=== PATIENT | male | born 1965 | race Caucasian/White ===

== ENCOUNTER 2016-12-15 12:01 | Emergency (ER) | payer MEDICAID ==
--- NOTE | 2016-12-15 13:12 | ED Physician Chart ---
Chief Complaint/HPI - Patient Information Date Seen:: 12/15/16 Time Seen:: 12:20 Chief Complaint:: foreign body left thigh History of Present Illness:: Using a nail gun yesterday injected a nail into his proximal anterior left thigh. Patient referred to [facility] where an x-ray showed a 1 cm metallic foreign body in the subcutaneous tissue. The emergency physician there made a 1 cm incision in an unsuccessful attempt remove the foreign body. One suture was placed to close the incision. Historian:: Patient, Family Member Review:: Nurse's Note Reviewed Review of Systems - Review of Systems General/Constitutional: No fever, No chills Skin: Skin lesions Head: No headache Eyes: No loss of vision ENT: No earache Neck: No neck pain Cardio Vascular: No chest pain, No palpitations Pulmonary: No SOB GI: No nausea, No vomiting G/U: No dysuria Musculoskeletal: No bone or joint pain, No back pain Psychiatric: No prior psych history, No depression Hematopoietic: No bruising Allergic/Immuno: No urticaria Neurological: No syncope, No focal symptoms Past Medical History - Past Medical History Past Medical History: HTN, DM, Dyslipidemia, Other (hyperlipidemia) Family History: Diabetes Melitus Social History: Non Smoker, Alcohol, Other (occasional alcohol only) Surgical History: None Psychiatricy History: None Medication: None Family Medical History - Family Member Mother Hx Family Diabetes: Yes Physical Exam - Physical Examination General/Constitutional: Well-developed, well-nourished, Alert, No distress Head: Atraumatic Eyes: Lids, conjuctiva normal, PERRL Other Skin comments:: 1 cm incision proximal anterior right thigh with one suture noted. No foreign body is palpable. ENMT: External ears, nose nl Neck: No nuchal rigidity Respiratory: Nl effort/Exclusion, Clear to Auscultation Cardio Vascular: RRR GI: No tenderness/rebounding/guarding : No CVA tenderness Other Extremities comments:: see under skin Neuro/Psych: Alert/oriented Misc: Normal back, No paraspinal tenderness Labs/Radiology/EKG Results - Radiology Results Results: X-ray left femur showed a 1 cm long superficial foreign body in the proximal left femur. Assessment - Assessment General Assessment: Although the foreign body looks superficial on the x-ray it is possible that my attempt to remove it would be unsuccessful as it is not palpable at the skin surface. Except for possible pain I do not think the foreign body will cause any problem. If it ever becomes palpable at the skin surface patient easy to remove with a small incision. The patient and his family were so informed. ED Septic Shock - . Is Septic Shock (SBP<90, OR Lactate>4 mmol\L) present?: No Reassessment (Disposition) - Reassessment Reassessment Condition:: Unchanged - Diagnosis Diagnosis:: Metallic foreign body left side - Aftercare/Follow up Instructions Aftercare/Follow-Up Instructions:: Refer to Discharge Instructions - Patient Disposition Discharge/Transfer:: Home Condition at Disposition:: Stable, Unchanged ED Discharge Plan - Patient Disposition Instructions: Puncture Wound, [id number] Additional Instructions: TOLERATED.
--- NOTE | 2016-12-15 14:07 | Diagnostic Imaging Report ---
Left femur 2 views Indication: Foreign body Comparison: None Findings: There is 1.3 cm linear density probably needle fragments seen embedded within the soft tissues of the left lateral proximal left femur. The bony mineralization is within normal limits. Mild degenerative changes of the left hip joint are noted. No evidence of acute fracture is noted at the distal femur is incompletely visualized on this exam. Impression: 1.3 cm linear density probably a needle fragment embedded within the soft tissues of the left lateral proximal femur. Clinical correlation recommended. No evidence of an acute fracture. In the setting of trauma, if clinical symptoms persist and there is continued concern for an occult fracture, follow up exams in 5-7 days is suggested. Results were administered to the ER team on 12/15/2016 at 2:00 PM.
== END 2016-12-15 13:40 | disposition home or self-care (01) ==
LOC: ER 12:01
DX: S70.352A Superficial foreign body, left thigh, initial encounter (principal); I10 Essential (primary) hypertension; E11.9 Type 2 diabetes mellitus without complications; E78.5 Hyperlipidemia, unspecified; W45.8XXA Other foreign body or object entering through skin, initial encounter; Y93.89 Activity, other specified; Y92.89 Other specified places as the place of occurrence of the external cause; Y99.8 Other external cause status
CPT/HCPCS: Z7502

== ENCOUNTER 2017-03-14 16:42 | Emergency (ER) | payer MEDICAID ==
--- NOTE | 2017-03-14 17:07 | ED Physician Chart ---
ED Chief Complaint/HPI - Patient Information Date Seen:: 03/14/17 Time Seen:: 16:55 Chief Complaint:: Left Thigh Redness History of Present Illness:: onset x one month of localized redness and mild swelling of left thigh area after exploratory surgery one month ago; no FB found; pt denies any new injuries. trauma, H/As, neck pain, C/P, SOB, Abd. Pain, A/N/V/D/C, fever, chills , or urinary s/s; pt's last tetanus shot: < 5 years; UTD Allergies:: Allergies Allergy/AdvReac Type Severity Reaction Status Date / Time No Known Allergies Allergy Verified 12/15/16 12:35 Vitals:: Vital Signs - 8 hr 03/14/17 16:53 Temp 98.4 F HR 87 RR 16 BP 148/74 O2 Sat % 99 Historian:: Patient Review:: Nurse's Note Reviewed ED Review of Systems - Review of Systems General/Constitutional: No fever, No chills, No weight loss, No weakness, No diaphoresis, No edema, No loss of appetite Skin: Skin lesions, No rash, No bruising Head: No headache, No light-headedness Eyes: No loss of vision, No pain, No diplopia ENT: No earache, No nasal drainage, No sore throat, No tinnitus Neck: No neck pain, No swelling, No thyromegaly, No stiffness, No mass noted Cardio Vascular: No chest pain, No palpitations, No PND, No orthopnea, No edema Pulmonary: No SOB, No cough, No sputum, No wheezing GI: No nausea, No vomiting, No diarrhea, No pain, No melena, No hematochezia, No constipation, No hematemesis G/U: No dysuria, No frequency, No hematuria Musculoskeletal: No bone or joint pain, No back pain, No muscle pain Endocrine: Polyuria, Polydipsia Psychiatric: No prior psych history, No depression, No anxiety, No suicidal ideation Hematopoietic: No bruising, No lymphadenopathy Allergic/Immuno: No urticaria, No angioedema Neurological: No syncope, No focal symptoms, No weakness, No paresthesia, No headache, No seizure, No dizziness, No confusion, No vertigo ED Past Medical History - Past Medical History Obtainable: Yes Past Medical History: No significant medical hx, HTN, DM, Dyslipidemia Family History: HTN Social History: Non Smoker, No Alcohol, No Drug Use, Surgical History: other (Left Thigh Exploratory Surgery) Psychiatricy History: None Medication: Reviewed Family Medical History - Family Member Mother Hx Family Diabetes: Yes ED Physical Exam - Physical Examination General/Constitutional: Awake, Well-developed, well-nourished, Alert, No distress, GCS 15, Non-toxic appearing, Ambulatory Head: Atraumatic Eyes: Lids, conjuctiva normal, PERRL, EOMI Skin: Nl inspection, No rash, No skin lesions, No ecchymosis, Well hydrated, No lymphadenopathy Other Skin comments:: Localized Cellulitis around Surgical scar wound of the Left thigh Region; no FBs ; no abscesses; no septic joints; full active ROMs of all joints; good motor, tendon, and sensory functions; good NV functions ENMT: External ears, nose nl, TM canals nl, Nasal exam nl, Lips, teeth, gums nl , Oropharynx nl, Tonsils nl Neck: Nontender, Full ROM w/o pain, No JVD, No nuchal rigidity, No bruit, No mass, No stridor Respiratory: Nl effort/Exclusion, Clear to Auscultation, No Wheeze/Rhonchi/Rales Cardio Vascular: RRR, No murmur, gallop, rubs, NL S1 S2, Carotid/Femoral/Distal pulses equal bilaterally GI: No tenderness/rebounding/guarding, No organomegaly, No hernia, Normal BS's, Nondistended, No mass/bruits, No McBurney tenderness : No CVA tenderness Extremities: No tenderness or effusion, Full ROM, normal strength in all extremities, No edema, Normal digits & nails Neuro/Psych: Alert/oriented, DTR's symmetric, Normal sensory exam, Normal motor strength, Judgement/insight normal, Mood normal, Normal gait, No focal deficits Misc: Normal back, No paraspinal tenderness ED Septic Shock - . Is Septic Shock (SBP<90, OR Lactate>4 mmol\L) present?: No - <6hrs of presentation: Vital Signs: Vital Signs - 8 hr 03/14/17 16:53 Temp 98.4 F HR 87 RR 16 BP 148/74 O2 Sat % 99 ED Reassessment (Disposition) - Reassessment Reassessment:: pt is asymptomatic upon discharge Reassessment Condition:: Improved - Diagnosis Diagnosis:: Localized Cellulitis; Left Thigh Cellulitis; Left Thigh Surgical Scar Wound - Aftercare/Follow up Instructions Aftercare/Follow-Up Instructions:: Counseled pt regarding lab results/diagnosis & need follow up, Refer to Discharge Instructions, Counseled pt & family regarding lab results/diagnosis & need follow up Medication Prescribed:: Rx: Keflex 500mg po qid x 10 days; Neosporin Ointment bid x 14 days; Warm Compresses to affected area; take medications as prescibed - Patient Disposition Discharge/Transfer:: Home Condition at Disposition:: Stable, Improved (RTER prn if existing s/s reoccur and/or get worse and/or any other new s/s occur; ACIs given for all above Dx; Refer to Vascular Surgeon/Fringing Machine Operator/[employer] [facility]; F/U with PMD in one day or prn; RTER prn if concerned)
== END 2017-03-14 17:24 | disposition short-term general hospital (02) ==
LOC: ER 16:42
DX: L03.116 Cellulitis of left lower limb (principal)
CPT/HCPCS: Z7502